=== PATIENT | female | born 1985 | race Caucasian/White ===

== ENCOUNTER 2016-12-02 12:01 | Emergency (ER) | payer BC ==
[2016-12-02 12:05] VITALS: BMI 32.1
[2016-12-02 12:09] VITALS: TEMP 98.4
--- NOTE | 2016-12-02 12:44 | ED PDOC ---
Arrival/HPI - General Chief Complaint: Trauma Time Seen by Provider: 12/02/16 12:13 Historian: Patient - History of Present Illness Narrative History of Present Illness (Text): 12/02/16 12:39 31yr old female presents today with back pain, left sided rib pain, left hip pain s/p fall this morning. pt states she was walking down the stairs and slipped and fell down approx 3 stairs landing on her left side. pt denies hitting her head. denies headache, neck pain, dizziness or weakness. pt states after the fall she was able to get up. pt states incident occurred approx 2 hours in the past. denies numbness, weakness, tingling in the extremity. denies fever/chills. no cp or sob. c/o pain with deep inspiration on the left side. no other complaints. Time/Duration: 1-3 hours Symptom Onset: Sudden Symptom Course: Unchanged Quality: Aching Severity Level: 4 Past Medical History - Provider Review Nursing Documentation Reviewed: Yes - Travel History Have you recently traveled outside [place] w/in the past 3 mons?: No - Infectious Disease Hx of Infectious Diseases: None - Cardiac Hx Hypertension: Yes - Endocrine/Metabolic Hx Diabetes Mellitus Type 2: Yes - Psychiatric Hx Psychophysiologic Disorder: No Hx Depression: No Hx Emotional Abuse: No Hx Physical Abuse: No Hx Substance Use: No - Surgical History Hx Section: Yes Hx Tubal Ligation: Yes Other/Comment: Myomectomy - Anesthesia Hx Anesthesia: Yes Hx Anesthesia Reactions: No Hx Malignant Hyperthermia: No - Suicidal Assessment Feels Threatened In Home Enviroment: No Family/Social History - Physician Review Nursing Documentation Reviewed: Yes Family/Social History: Unknown Family HX Smoking Status: Never Smoked Hx Alcohol Use: Yes Hx Substance Use: No Hx Substance Use Treatment: No Allergies/Home Meds Allergies/Adverse Reactions: Allergies No Known Allergies Allergy (Verified 02/17/12 14:13) Home Medications: Home Meds Medication Instructions Recorded Confirmed Lisinopril [Zestril] 1 tab PO DAILY 12/02/16 12/02/16 Metoprolol Tartrate [Lopressor] 1 tab PO DAILY 12/02/16 12/02/16 SITagliptin [Januvia] 1 tab PO DAILY 12/02/16 12/02/16 Simvastatin [Simvastatin] 1 tab PO DAILY 12/02/16 12/02/16 Review of Systems - Review of Systems Constitutional: absent: Fatigue, Fevers ENT: absent: Sinus Congestion Respiratory: Other (left sided rib pain s/p fall). absent: SOB, Cough Cardiovascular: absent: Chest Pain, Palpitations, Orthopnea, Syncope Gastrointestinal: absent: Abdominal Pain, Diarrhea, Nausea, Vomiting Genitourinary Female: absent: Dysuria, Frequency, Hematuria, Urine Output Changes Musculoskeletal: Arthralgias (left sided rib pain, left hip pain), Back Pain. absent: Neck Pain Skin: absent: Rash, Pruritis Neurological: absent: Headache, Dizziness Psychiatric: absent: Anxiety, Depression Physical Exam Vital Signs Reviewed: Yes Vital Signs Temp Pulse Resp BP Pulse Ox 12/02/16 14:13 66 17 121/75 100 12/02/16 13:50 79 18 115/71 98 12/02/16 12:07 98.4 F 84 18 113/76 98 Temperature: Afebrile Blood Pressure: Normal Pulse: Regular Respiratory Rate: Normal Appearance: Positive for: Well-Appearing, Non-Toxic, Comfortable Pain Distress: None Mental Status: Positive for: Alert and Oriented X 3 - Systems Exam Head: Present: Atraumatic Mouth: Present: Moist Mucous Membranes Neck: Present: Normal Range of Motion Respiratory/Chest: Present: Clear to Auscultation, Good Air Exchange, Tender to Palpation (+ left lower lateral rib tenderness, no edema, no erythema; no ecchymosis; no step offs or crepitus. ). No: Respiratory Distress, Accessory Muscle Use Cardiovascular: Present: Regular Rate and Rhythm Abdomen: Present: Normal Bowel Sounds. No: Tenderness, Distention, Peritoneal Signs, Rebound, Guarding Back: Present: Normal Inspection, Midline Tenderness (+ lumbar tenderness,), Paraspinal Tenderness (+ left sided paraspinal tenderness) Upper Extremity: Present: Normal Inspection, Normal ROM, NORMAL PULSES. No: Tenderness Lower Extremity: Present: Normal Inspection, NORMAL PULSES, Normal ROM, Tenderness (Pelvis stable; left hip; + ttp over posterior left hip; full rom of hip; no femur tenderness, full rom of knee. no ankle tenderness. full rom of all 4 extremities. ), Neurovascularly Intact. No: CALF TENDERNESS, Swelling, Erythema, Deformity, Temperature Abnormalties, Capillary Refill < 2 s Neurological: Present: GCS=15, Speech Normal Skin: Present: Warm, Dry, Normal Color. No: Rashes Psychiatric: Present: Alert, Oriented x 3 Medical Decision Making ED Course and Treatment: 12/02/16 12:58 31-year-old female nontoxic well-appearing no distress presenting with back pain , left hip pain, and left-sided rib pain status post fall 2 hours prior to arrival Abdomen soft nontender nondistended. Patient ambulating with a steady gait. Toradol given for pain IM Left rib/PA chest x-ray: no fracture as read by the radiologist Left hip x-ray:no fracture as read by the radiologist Lumbar spine x-ray: Minimal anterior wedging of the L1 and T12 vertebral body. No acute displaced fracture. pt reassessment; pt feeling better after medications; vitals stable. 12/02/16 14:20 Discussed all results in depth with the patient advised follow-up with primary care physician and orthopedist within the next 2 days. Advised pt to return if symptoms worsen or persist or if new concerning symptoms develop pt given incentive spirometer and was advised how to use it. Patient verbalizes understanding of discharge instructions and need for immediate followup. Impression: Back pain, rib pain, hip pain Motrin every 6 hours as needed for pain Flexeril one tablet every 8 hours as needed for muscle spasms: May cause drowsiness Rest, ice Followup with the orthopedist within the next 2 days Followup with primary care physician within the next 2 days Return if symptoms worsen persist or if new symptoms develop use incentive spirometer frequently - RAD Interpretation Radiology Orders: 12/02/16 12:37 HIP MIN 2V W/ PELVIS LT [RAD] Stat LS SPINE WITH OBL > 18 YRS OLD [RAD] Stat RIBS LEFT & PA CHEST [RAD] Stat - Medication Orders Current Medication Orders: Discontinued Medications Ketorolac Tromethamine (Toradol) 60 mg IM STAT STA Stop: 12/02/16 12:39 Last Admin: 12/02/16 12:50 Dose: 60 mg Disposition/Present on Arrival - Present on Arrival Any Indicators Present on Arrival: Yes History of DVT/PE: No History of Uncontrolled Diabetes: Yes Urinary Catheter: No History of Decub. Ulcer: No History Surgical Site Infection Following: None - Disposition Have Diagnosis and Disposition been Completed?: Yes Diagnosis: Rib pain, Hip pain, Back pain Disposition: HOME/ ROUTINE Disposition Time: 14:22 Patient Plan: Discharge Condition: GOOD Discharge Instructions (ExitCare): Arthralgia (ED), Back Pain (ED), Rib Contusion (ED) Additional Instructions: Motrin every 6 hours as needed for pain Flexeril one tablet every 8 hours as needed for muscle spasms: May cause drowsiness Rest, ice Followup with the orthopedist within the next 2 days Followup with primary care physician within the next 2 days Return if symptoms worsen persist or if new symptoms develop USE incentive spirometer Prescriptions: Cyclobenzaprine [Cyclobenzaprine HCl] 10 mg PO Q8 #10 tab Ibuprofen [Motrin] 600 mg PO Q6H PRN #20 tab PRN Reason: pain/fever reduction Referrals: Kin Abreu III, MD [Medical Doctor] - Follow up with primary Maisha Lowe MD [Staff Provider] - Follow up with primary Forms: [employer] (Setswana)
--- NOTE | 2016-12-02 14:08 | RAD ---
PROCEDURE: Radiographs of the Lumbar Spine. HISTORY: fall, back pain COMPARISON: None available. FINDINGS: BONES: Alignment appears satisfactory. No listhesis. No acute displaced fracture identified.Minimal anterior wedging of the L1 and T12 vertebral body. DISC SPACES: Unremarkable. OTHER FINDINGS: None. IMPRESSION: Minimal anterior wedging of the L1 and T12 vertebral body. No acute displaced fracture.
--- NOTE | 2016-12-02 14:09 | RAD ---
Indication: fall, left hip pain Left hip/pelvis radiographs Comparison: None available Findings: No acute displaced fracture or dislocation identified. Sacroiliac joints appear intact. Mild constipation. Soft tissues appear unremarkable. No evidence of radiopaque foreign body. Impression: No acute displaced fracture or dislocation evident. If high clinical index of suspicion, suggest cross-sectional imaging for further evaluation. Otherwise, if symptoms persist or if there is continued clinical concern, x-ray follow-up in 7-10 days should be considered.
--- NOTE | 2016-12-02 14:11 | RAD ---
PROCEDURE: Radiographs of the Chest and Left Ribs. HISTORY: fall, rib pain COMPARISON: None available. TECHNIQUE: Frontal radiograph of the chest and multiple oblique radiographs of the left ribs were obtained. FINDINGS: Examination limited by habitus and hypoinflation. LEFT RIBS: No appreciable displaced left rib fractures. LUNGS: No focal consolidation. Please note that chest x-ray has limited sensitivity for the detection of pulmonary masses. PLEURA: No significant pleural effusion. No definite pneumothorax. CARDIOVASCULAR: Heart size appears within normal limits. OTHER FINDINGS: None. IMPRESSION: Unremarkable radiographs of the chest and left ribs. No appreciable displaced left rib fracture.
[2016-12-02 14:16] VITALS: BP 121/75; PULSE 66; RESP 17; O2SAT 100
== END 2016-12-02 14:42 | disposition home or self-care (01) ==
LOC: ED 12:01
DX: R07.81 Pleurodynia (principal); M54.9 Dorsalgia, unspecified; M25.552 Pain in left hip
CPT/HCPCS: 71101; 72110; 73502; 96372; 99284; J1885